=== PATIENT | male | born 1970 | race African-American/Black ===

== ENCOUNTER 2022-08-10 20:08 | Emergency (ER) | payer OTHER ==
[~2022-08-10] VITALS: Ht 190.5 cm; Wt 94.5 kg
[2022-08-10 20:25] VITALS: BP 94/63
[2022-08-10 22:17] LABS: Eosinophils # (auto) 0.2 10 ^3/uL (0-0.8); Lymphocytes # (auto) 1.8 10 ^3/uL (0.4-5.4); Neutrophils # (auto) 3.6 10 ^3/uL (1.6-8.6); Red Cell Distribution Width 13.3 % (11.8-14.3); White Blood Cell 6.5 10^3/uL (4.4-10.8)
[2022-08-10 22:21] LABS: Basophils # (auto) 0 10 ^3/uL (0-0.2); Basophils % (auto) 0.7 % (0.0-2.0); Eosinophils % (auto) 3.1 % (0.0-7.0); Hematocrit 52.4 % (41.0-53.0); Hemoglobin 18.2 g/dL (13.5-17.5); Lymphocytes % (auto) 27.1 % (10.0-50.0); Mean Corpuscular Hgb Conc. 34.7 g/dL (32.0-36.0); Mean Corpuscular Volume 89.3 fL (80.0-100.0); Monocytes # (auto) 0.9 10 ^3/uL (0-1.3); Monocytes % (auto) 13.4 % (0.0-12.0); Neutrophils % (auto) 55.7 % (37.0-80.0); Red Blood Cells 5.87 10^6/uL (4.5-5.90)
[2022-08-10 22:23] LABS: Nucleated Red Blood Cells % 3.4 %
[2022-08-10 22:35] LABS: Potassium 3.6 mmol/L (3.5-5.1)
[2022-08-10 22:39] LABS: Albumin 3.8 g/dL (3.4-5.0); BUN/Creatinine Ratio 16.1; Calcium 9.5 mg/dL (8.5-10.1)
[2022-08-10 22:41] LABS: Bilirubin, Total 1.4 mg/dL (0.2-1.0); Total Protein 8.9 g/dL (6.4-8.2)
[2022-08-11] MEDS ORDERED: SODIUM CHLORIDE 0.9% 1,000 ML IV ONE ×2 (01:00)
[2022-08-11] MEDS ORDERED: IOHEXOL 350 MG/ML 100ML IJ ONE (01:20)
== END 2022-08-11 04:15 | disposition left against medical advice (07) ==
LOC: ER 20:08
DX: R53.1 Weakness (principal); R79.89 Other specified abnormal findings of blood chemistry; J45.909 Unspecified asthma, uncomplicated; Z20.822 Contact with and (suspected) exposure to COVID-19
CPT/HCPCS: 36415; 71045; 71275; 80053; 83880; 85025; 85379; 87426; 99285; Q9967